=== PATIENT | female | born 1955 | race Asian ===

== ENCOUNTER 2023-05-26 16:41 | Inpatient (IN) | payer MEDICARE, OTHER ==
[~2023-05-26] VITALS: Ht 157.5 cm; Wt 64.9 kg
[~2023-05-26 16:41] MED LIST: ASPI-1450 PO; ATOR40TA28 PO; CLOP75TA60 PO; FLUT16SP NASAL; LORA10TA7 PO; LOSA-381 PO; METF-1211 PO; SIMV-261 PO
[2023-05-26 19:00] VITALS: BP 134/86; PULSE 76; RESP 18; TEMP 98.6; O2SAT 98
[2023-05-26] MEDS ORDERED: DEXTROSE 50%-WATER 25 GM/50 ML SYRINGE IVP PRN (19:45)
[2023-05-26] MEDS ORDERED: ACETAMINOPHEN 325 MG TABLET PO PRN (19:45)
[2023-05-26] MEDS: ETHYL ALCOHOL 62% ANTISEPTIC NASAL SANITIZER 0.6 ML AMPUL NASAL SCH (21:04)
[2023-05-26] MEDS: ATORVASTATIN CALCIUM 40 MG TABLET PO SCH (21:05)
[2023-05-26] MEDS: MELATONIN 3 MG TABLET PO PRN (21:05)
[2023-05-26] MEDS: INSULIN LISPRO 100 UNITS/ML SQ PRN (21:06)
[2023-05-26 22:02] VITALS: O2SAT 98
[2023-05-26 23:11] LABS: GLUCOMETER DEV NAME(LOC) 2WR.1D; GLUCOSE,POINT OF CARE 141 MG/DL (70-110)
[2023-05-27 07:01] LABS: GLUCOMETER DEV NAME(LOC) 2WR.1D; GLUCOSE,POINT OF CARE 112 MG/DL (70-110)
[2023-05-27] MEDS: ASPIRIN 81 MG CHEWABLE TABLET PO SCH (07:26)
[2023-05-27] MEDS: CLOPIDOGREL BISULFATE 75 MG TABLET PO SCH (07:26)
[2023-05-27] MEDS: LOSARTAN POTASSIUM 25 MG TABLET PO SCH (07:26)
[2023-05-27] MEDS: ETHYL ALCOHOL 62% ANTISEPTIC NASAL SANITIZER 0.6 ML AMPUL NASAL SCH ×2 (07:26→20:25)
[2023-05-27] MEDS: DOCUSATE SODIUM 100 MG CAPSULE PO SCH ×2 (07:26→20:25)
[2023-05-27 07:36] LABS: BASOPHILS % (AUTO) 0.7 % (0.0-2.0); EOSINOPHILS % (AUTO) 4.7 % (1.0-6.0); HEMATOCRIT 30.7 % (36-46); HEMOGLOBIN 10.3 g/dL (12.0-16.0); LYMPHOCYTES % (AUTO) 36.3 % (22.0-44.0); MEAN CORPUSCULAR HEMOGLOBIN 28.3 pg (26.0-34.0); MEAN CORPUSCULAR HGB CONC 33.5 G/dL (31.0-37.0); MEAN CORPUSCULAR VOLUME 85 fL (80-100); MONOCYTES # (AUTO) 0.3 K/uL (0.1-1.0); MONOCYTES % (AUTO) 5.5 % (2.0-9.0); NEUTROPHILS # (AUTO) 2.9 K/uL (1.8-7.7); NEUTROPHILS % (AUTO) 52.8 % (40.0-70.0); PLATELET COUNT (AUTO) 281 K/uL (150-450); RED BLOOD CELL COUNT(AUTO) 3.63 MIL/uL (4.00-5.20); RED CELL DISTRIBUTION WIDTH 13.7 % (11.5-14.5); WHITE BLOOD COUNT (AUTO) 5.6 K/uL (4.5-11.0)
[2023-05-27 08:02] VITALS: BP 128/72; PULSE 70; RESP 18; TEMP 98.2; O2SAT 98
[2023-05-27 08:16] LABS: ALBUMIN 3.6 g/dL (3.4-5.0); BILIRUBIN,TOTAL 0.3 mg/dL (0.1-1.0); CALCIUM, TOTAL 8.9 mg/dL (8.8-10.5); CREATININE 1.09 mg/dL (0.60-1.30); POTASSIUM 3.8 mmol/L (3.5-5.1); TOTAL PROTEIN, SERUM 7.8 g/dL (6.4-8.2)
[2023-05-27 08:49] VITALS: O2SAT 98
[2023-05-27 11:30] VITALS: BP 124/78; PULSE 80; RESP 19; TEMP 98; O2SAT 98
[2023-05-27] MEDS: ENOXAPARIN SODIUM 40 MG/0.4 ML PF SYRINGE SQ SCH (11:45)
[2023-05-27 11:46] LABS: GLUCOMETER DEV NAME(LOC) 2WR.1D; GLUCOSE,POINT OF CARE 105 MG/DL (70-110)
[2023-05-27 17:31] LABS: GLUCOMETER DEV NAME(LOC) 2WR.1D; GLUCOSE,POINT OF CARE 107 MG/DL (70-110)
[2023-05-27 20:00] VITALS: O2SAT 98
[2023-05-27] MEDS: ATORVASTATIN CALCIUM 40 MG TABLET PO SCH (20:25)
[2023-05-27] MEDS: MELATONIN 3 MG TABLET PO PRN (20:25)
[2023-05-27] MEDS: INSULIN LISPRO 100 UNITS/ML SQ PRN (20:36)
[2023-05-27 21:00] VITALS: BP 133/70; PULSE 86; RESP 18; TEMP 98.1; O2SAT 98
[2023-05-27 21:16] LABS: GLUCOMETER DEV NAME(LOC) 2WR.1D; GLUCOSE,POINT OF CARE 148 MG/DL (70-110)
[2023-05-28 07:25] LABS: GLUCOMETER DEV NAME(LOC) 2WR.2B; GLUCOSE,POINT OF CARE 111 MG/DL (70-110)
[2023-05-28] MEDS: ENOXAPARIN SODIUM 40 MG/0.4 ML PF SYRINGE SQ SCH (08:41)
[2023-05-28] MEDS: CLOPIDOGREL BISULFATE 75 MG TABLET PO SCH (08:42)
[2023-05-28] MEDS: ASPIRIN 81 MG CHEWABLE TABLET PO SCH (08:42)
[2023-05-28] MEDS: LOSARTAN POTASSIUM 25 MG TABLET PO SCH (08:42)
[2023-05-28] MEDS: DOCUSATE SODIUM 100 MG CAPSULE PO SCH ×2 (08:42→19:55)
[2023-05-28] MEDS: ETHYL ALCOHOL 62% ANTISEPTIC NASAL SANITIZER 0.6 ML AMPUL NASAL SCH ×2 (08:43→19:55)
[2023-05-28 09:30] VITALS: O2SAT 100
[2023-05-28 09:32] VITALS: BP 135/70; PULSE 74; RESP 18; TEMP 97.7; O2SAT 100
[2023-05-28 17:41] LABS: GLUCOMETER DEV NAME(LOC) 2WR.2B; GLUCOSE,POINT OF CARE 101 MG/DL (70-110)
[2023-05-28 19:52] VITALS: BP 132/76; PULSE 82; RESP 18; TEMP 98.9; O2SAT 100
[2023-05-28] MEDS: ATORVASTATIN CALCIUM 40 MG TABLET PO SCH (19:55)
[2023-05-28] MEDS: MELATONIN 3 MG TABLET PO PRN (19:55)
[2023-05-28 21:11] VITALS: O2SAT 100
[2023-05-29 07:31] LABS: GLUCOMETER DEV NAME(LOC) 2WR.1D; GLUCOSE,POINT OF CARE 115 MG/DL (70-110)
[2023-05-29] MEDS: ETHYL ALCOHOL 62% ANTISEPTIC NASAL SANITIZER 0.6 ML AMPUL NASAL SCH ×2 (07:55→19:53)
[2023-05-29] MEDS: ENOXAPARIN SODIUM 40 MG/0.4 ML PF SYRINGE SQ SCH (07:55)
[2023-05-29] MEDS: ASPIRIN 81 MG CHEWABLE TABLET PO SCH (07:55)
[2023-05-29] MEDS: LOSARTAN POTASSIUM 25 MG TABLET PO SCH (07:55)
[2023-05-29] MEDS: CLOPIDOGREL BISULFATE 75 MG TABLET PO SCH (07:55)
[2023-05-29] MEDS: DOCUSATE SODIUM 100 MG CAPSULE PO SCH ×2 (07:55→19:53)
[2023-05-29] MEDS: FAMOTIDINE 20 MG TABLET PO SCH (07:56)
[2023-05-29 08:05] VITALS: BP 128/75; PULSE 68; RESP 18; TEMP 98.1; O2SAT 98
[2023-05-29 10:03] VITALS: O2SAT 98
[2023-05-29 17:46] LABS: GLUCOMETER DEV NAME(LOC) 2WR.1D; GLUCOSE,POINT OF CARE 87 MG/DL (70-110)
[2023-05-29] MEDS: MELATONIN 3 MG TABLET PO PRN (19:53)
[2023-05-29] MEDS: ATORVASTATIN CALCIUM 40 MG TABLET PO SCH (19:53)
[2023-05-29 19:56] VITALS: BP 133/78; PULSE 90; RESP 19; TEMP 98.4; O2SAT 95
[2023-05-29 20:03] VITALS: O2SAT 95
[2023-05-30 06:55] LABS: GLUCOMETER DEV NAME(LOC) 2WR.1D; GLUCOSE,POINT OF CARE 105 MG/DL (70-110)
[2023-05-30 08:05] VITALS: BP 127/71; PULSE 70; RESP 18; TEMP 98.2; O2SAT 98
[2023-05-30] MEDS: DOCUSATE SODIUM 100 MG CAPSULE PO SCH ×2 (08:55→19:59)
[2023-05-30] MEDS: ASPIRIN 81 MG CHEWABLE TABLET PO SCH (08:55)
[2023-05-30] MEDS: ENOXAPARIN SODIUM 40 MG/0.4 ML PF SYRINGE SQ SCH (08:55)
[2023-05-30] MEDS: CLOPIDOGREL BISULFATE 75 MG TABLET PO SCH (08:55)
[2023-05-30] MEDS: FAMOTIDINE 20 MG TABLET PO SCH (08:56)
[2023-05-30] MEDS: LOSARTAN POTASSIUM 25 MG TABLET PO SCH (08:56)
[2023-05-30] MEDS: ETHYL ALCOHOL 62% ANTISEPTIC NASAL SANITIZER 0.6 ML AMPUL NASAL SCH ×2 (09:01→19:55)
[2023-05-30 11:35] VITALS: O2SAT 98
[2023-05-30 16:45] LABS: GLUCOMETER DEV NAME(LOC) 2WR.1D; GLUCOSE,POINT OF CARE 100 MG/DL (70-110)
[2023-05-30] MEDS: MELATONIN 3 MG TABLET PO PRN (19:55)
[2023-05-30] MEDS: ATORVASTATIN CALCIUM 40 MG TABLET PO SCH (19:55)
[2023-05-30 20:38] VITALS: BP 113/69; PULSE 79; RESP 19; TEMP 98.9; O2SAT 99
[2023-05-30 20:42] VITALS: O2SAT 99
[2023-05-31 06:36] LABS: GLUCOMETER DEV NAME(LOC) 2WR.1D; GLUCOSE,POINT OF CARE 111 MG/DL (70-110)
[2023-05-31] MEDS: ENOXAPARIN SODIUM 40 MG/0.4 ML PF SYRINGE SQ SCH (07:56)
[2023-05-31] MEDS: ETHYL ALCOHOL 62% ANTISEPTIC NASAL SANITIZER 0.6 ML AMPUL NASAL SCH ×2 (07:56→20:27)
[2023-05-31] MEDS: LOSARTAN POTASSIUM 25 MG TABLET PO SCH (07:57)
[2023-05-31] MEDS: ASPIRIN 81 MG CHEWABLE TABLET PO SCH (07:57)
[2023-05-31] MEDS: CLOPIDOGREL BISULFATE 75 MG TABLET PO SCH (07:57)
[2023-05-31] MEDS: DOCUSATE SODIUM 100 MG CAPSULE PO SCH ×2 (07:57→20:27)
[2023-05-31] MEDS: FAMOTIDINE 20 MG TABLET PO SCH (07:57)
[2023-05-31 08:20] VITALS: BP 111/75; PULSE 70; RESP 17; TEMP 98.8; O2SAT 100
[2023-05-31 11:04] VITALS: O2SAT 100
[2023-05-31 15:26] VITALS: RESP 18
[2023-05-31 20:10] VITALS: BP 129/59; PULSE 72; RESP 18; TEMP 98.2; O2SAT 99
[2023-05-31] MEDS: ATORVASTATIN CALCIUM 40 MG TABLET PO SCH (20:27)
[2023-05-31] MEDS: MELATONIN 3 MG TABLET PO PRN (20:27)
[2023-05-31 22:57] VITALS: O2SAT 99
[2023-06-01 08:13] VITALS: BP 113/69; PULSE 65; RESP 18; TEMP 98.2; O2SAT 97
[2023-06-01] MEDS: ETHYL ALCOHOL 62% ANTISEPTIC NASAL SANITIZER 0.6 ML AMPUL NASAL SCH ×2 (08:47→19:56)
[2023-06-01] MEDS: ENOXAPARIN SODIUM 40 MG/0.4 ML PF SYRINGE SQ SCH (08:48)
[2023-06-01] MEDS: ASPIRIN 81 MG CHEWABLE TABLET PO SCH (08:55)
[2023-06-01] MEDS: FAMOTIDINE 20 MG TABLET PO SCH (08:56)
[2023-06-01] MEDS: DOCUSATE SODIUM 100 MG CAPSULE PO SCH ×2 (08:56→19:56)
[2023-06-01] MEDS: LOSARTAN POTASSIUM 25 MG TABLET PO SCH (08:56)
[2023-06-01] MEDS: CLOPIDOGREL BISULFATE 75 MG TABLET PO SCH (08:56)
[2023-06-01 09:42] VITALS: O2SAT 97
[2023-06-01] MEDS: MELATONIN 3 MG TABLET PO PRN (19:56)
[2023-06-01] MEDS: ATORVASTATIN CALCIUM 40 MG TABLET PO SCH (19:56)
[2023-06-01 20:00] VITALS: BP 124/61; PULSE 75; RESP 19; TEMP 98.2; O2SAT 98
[2023-06-01 21:30] VITALS: O2SAT 98
[2023-06-02 07:30] VITALS: BP 151/76; PULSE 62; RESP 18; TEMP 98.1; O2SAT 100
[2023-06-02] MEDS: ASPIRIN 81 MG CHEWABLE TABLET PO SCH (08:16)
[2023-06-02] MEDS: LOSARTAN POTASSIUM 25 MG TABLET PO SCH (08:16)
[2023-06-02] MEDS: ENOXAPARIN SODIUM 40 MG/0.4 ML PF SYRINGE SQ SCH (08:16)
[2023-06-02] MEDS: CLOPIDOGREL BISULFATE 75 MG TABLET PO SCH (08:16)
[2023-06-02] MEDS: ETHYL ALCOHOL 62% ANTISEPTIC NASAL SANITIZER 0.6 ML AMPUL NASAL SCH ×2 (08:16→20:46)
[2023-06-02] MEDS: FAMOTIDINE 20 MG TABLET PO SCH (08:16)
[2023-06-02] MEDS: DOCUSATE SODIUM 100 MG CAPSULE PO SCH ×2 (08:17→20:46)
[2023-06-02 09:40] VITALS: BP 117/71; PULSE 69
[2023-06-02 11:20] VITALS: O2SAT 100
[2023-06-02 20:00] VITALS: BP_SYST 123; BP_SYST 138; BP_DIAS 62; BP_DIAS 63; PULSE 62; PULSE 80; RESP 18; TEMP 97.5; TEMP 98.5; O2SAT 100
[2023-06-02] MEDS: ATORVASTATIN CALCIUM 40 MG TABLET PO SCH (20:45)
[2023-06-02] MEDS: MELATONIN 3 MG TABLET PO PRN (20:46)
[2023-06-03] MEDS: DOCUSATE SODIUM 100 MG CAPSULE PO SCH ×2 (07:35→20:37)
[2023-06-03] MEDS: FAMOTIDINE 20 MG TABLET PO SCH (07:35)
[2023-06-03] MEDS: LOSARTAN POTASSIUM 25 MG TABLET PO SCH (07:35)
[2023-06-03] MEDS: ETHYL ALCOHOL 62% ANTISEPTIC NASAL SANITIZER 0.6 ML AMPUL NASAL SCH ×2 (07:35→20:37)
[2023-06-03] MEDS: CLOPIDOGREL BISULFATE 75 MG TABLET PO SCH (07:35)
[2023-06-03] MEDS: ENOXAPARIN SODIUM 40 MG/0.4 ML PF SYRINGE SQ SCH (07:36)
[2023-06-03] MEDS: ASPIRIN 81 MG CHEWABLE TABLET PO SCH (07:36)
[2023-06-03 08:05] VITALS: BP 131/73; PULSE 70; RESP 18; TEMP 98.2; O2SAT 98
[2023-06-03 11:41] VITALS: O2SAT 98
[2023-06-03 20:00] VITALS: BP 117/69; PULSE 79; RESP 18; TEMP 98.2; O2SAT 100
[2023-06-03] MEDS: MELATONIN 3 MG TABLET PO PRN (20:37)
[2023-06-03] MEDS: ATORVASTATIN CALCIUM 40 MG TABLET PO SCH (20:37)
[2023-06-04] MEDS: FAMOTIDINE 20 MG TABLET PO SCH (08:04)
[2023-06-04] MEDS: ASPIRIN 81 MG CHEWABLE TABLET PO SCH (08:04)
[2023-06-04] MEDS: ETHYL ALCOHOL 62% ANTISEPTIC NASAL SANITIZER 0.6 ML AMPUL NASAL SCH ×2 (08:04→21:15)
[2023-06-04] MEDS: LOSARTAN POTASSIUM 25 MG TABLET PO SCH (08:04)
[2023-06-04] MEDS: CLOPIDOGREL BISULFATE 75 MG TABLET PO SCH (08:04)
[2023-06-04] MEDS: DOCUSATE SODIUM 100 MG CAPSULE PO SCH ×3 (08:04→21:15)
[2023-06-04] MEDS: ENOXAPARIN SODIUM 40 MG/0.4 ML PF SYRINGE SQ SCH (08:05)
[2023-06-04 08:30] VITALS: BP 148/83; PULSE 70; RESP 18; TEMP 99.1; O2SAT 100
[2023-06-04] MEDS ORDERED: ATOR40TA71 PO (10:46)
[2023-06-04] MEDS ORDERED: FAMO20 PO (10:46)
[2023-06-04] MEDS ORDERED: CLOP75TA60 PO (10:46)
[2023-06-04] MEDS ORDERED: ASPI-1450 PO (10:46)
[2023-06-04] MEDS ORDERED: LOSA-417 PO (10:46)
[2023-06-04 11:30] VITALS: TEMP 98.5
[2023-06-04 21:00] VITALS: BP 126/74; PULSE 68; RESP 18; TEMP 98.1; O2SAT 100
[2023-06-04] MEDS: MELATONIN 3 MG TABLET PO PRN (21:15)
[2023-06-04] MEDS: ATORVASTATIN CALCIUM 40 MG TABLET PO SCH (21:15)
[2023-06-05 08:15] VITALS: BP 122/68; PULSE 62; RESP 18; TEMP 98.3; O2SAT 96
[2023-06-05] MEDS: LOSARTAN POTASSIUM 25 MG TABLET PO SCH (08:41)
[2023-06-05] MEDS: ETHYL ALCOHOL 62% ANTISEPTIC NASAL SANITIZER 0.6 ML AMPUL NASAL SCH ×2 (08:41→20:14)
[2023-06-05] MEDS: DOCUSATE SODIUM 100 MG CAPSULE PO SCH ×2 (08:41→20:14)
[2023-06-05] MEDS: CLOPIDOGREL BISULFATE 75 MG TABLET PO SCH (08:41)
[2023-06-05] MEDS: ENOXAPARIN SODIUM 40 MG/0.4 ML PF SYRINGE SQ SCH (08:42)
[2023-06-05] MEDS: ASPIRIN 81 MG CHEWABLE TABLET PO SCH (08:42)
[2023-06-05] MEDS: FAMOTIDINE 20 MG TABLET PO SCH (10:34)
[2023-06-05 20:00] VITALS: BP 114/74; PULSE 75; RESP 18; TEMP 98.9; O2SAT 98
[2023-06-05] MEDS: ATORVASTATIN CALCIUM 40 MG TABLET PO SCH (20:14)
[2023-06-05] MEDS: MELATONIN 3 MG TABLET PO PRN (20:14)
[2023-06-06 08:10] VITALS: BP 143/74; PULSE 72; RESP 18; TEMP 98.4; O2SAT 98
[2023-06-06] MEDS: ETHYL ALCOHOL 62% ANTISEPTIC NASAL SANITIZER 0.6 ML AMPUL NASAL SCH (08:49)
[2023-06-06] MEDS: ENOXAPARIN SODIUM 40 MG/0.4 ML PF SYRINGE SQ SCH (08:49)
[2023-06-06] MEDS: LOSARTAN POTASSIUM 25 MG TABLET PO SCH (08:50)
[2023-06-06] MEDS: CLOPIDOGREL BISULFATE 75 MG TABLET PO SCH (08:50)
[2023-06-06] MEDS: DOCUSATE SODIUM 100 MG CAPSULE PO SCH (08:50)
[2023-06-06] MEDS: ASPIRIN 81 MG CHEWABLE TABLET PO SCH (08:50)
[2023-06-06] MEDS: FAMOTIDINE 20 MG TABLET PO SCH (08:50)
== END 2023-06-06 14:25 | disposition home health service (06) | DRG 58 ==
LOC: 2WR 18:40
PROVIDERS: ADMIT Physical Medicine & Rehabilitation; ATTEND Physical Medicine & Rehabilitation
DX: G81.94 Hemiplegia, unspecified affecting left nondominant side (principal); I63.9 Cerebral infarction, unspecified; E11.9 Type 2 diabetes mellitus without complications; D64.9 Anemia, unspecified; E78.00 Pure hypercholesterolemia, unspecified; I10 Essential (primary) hypertension; J45.909 Unspecified asthma, uncomplicated; R53.1 Weakness; Z79.84 Long term (current) use of oral hypoglycemic drugs; Z86.73 Personal history of transient ischemic attack (TIA), and cerebral infarction without residual deficits; Z83.3 Family history of diabetes mellitus; Z79.82 Long term (current) use of aspirin; Z79.899 Other long term (current) drug therapy; Z79.01 Long term (current) use of anticoagulants
CPT/HCPCS: 80053; 82962; 85025; 87081; 92507; 92523; 93970; 97110; 97112; 97116; 97150; 97162; 97166; 97530; 97535; 99366; J1650

== ENCOUNTER 2024-06-14 14:21 | Emergency (ER) | payer MEDICARE, OTHER ==
[~2024-06-14] VITALS: Ht 157.5 cm; Wt 68.2 kg
[~2024-06-14 14:21] MED LIST changes: +ATOR40TA71 PO; +FAMO20 PO; +LOSA-417 PO; -METF-1211 PO; -SIMV-261 PO
[2024-06-14 14:30] VITALS: BP 137/60; PULSE 72; RESP 18; TEMP 98.2; O2SAT 99
[2024-06-14] MEDS ORDERED: CARV12.530 PO (14:33)
[2024-06-14] MEDS ORDERED: METF-81 PO (14:33)
[2024-06-14] MEDS ORDERED: CLOP75TA32 PO (14:33)
[2024-06-14 14:36] LABS: COVID AG,FIA SOURCE NASAL SWAB
[2024-06-14 15:36] LABS: SARS-COV2 (COVID) ANTIGEN,FIA Negative (Negative)
[2024-06-14 15:38] LABS: INFLUENZA TYPE A NEGATIVE FOR TYPE A (NEGATIVE); INFLUENZA TYPE B NEGATIVE FOR TYPE B (NEGATIVE)
== END 2024-06-14 18:34 | disposition left against medical advice (07) ==
LOC: EMS 14:21
DX: R06.02 Shortness of breath (principal); R05.9 Cough, unspecified; R50.9 Fever, unspecified; Z53.21 Procedure and treatment not carried out due to patient leaving prior to being seen by health care provider; Z20.822 Contact with and (suspected) exposure to COVID-19
CPT/HCPCS: 87804